=== PATIENT | female | born 1940 | race Caucasian/White ===

== ENCOUNTER → 2020-03-29 | Outpatient (CLI) | payer MEDICARE, OTHER | END | disposition home or self-care (01) | LOC: RAH 13:34 | PROVIDERS: ATTEND Family Medicine | DX: M48.061 Spinal stenosis, lumbar region without neurogenic claudication (principal); M51.26 Other intervertebral disc displacement, lumbar region | CPT/HCPCS: 72148 ==

== ENCOUNTER 2020-05-29 13:00 | Inpatient (IN) | payer MEDICARE ==
[~2020-05-29] VITALS: Ht 160 cm; Wt 76.4 kg
[2020-05-30 09:54] LABS: BASOPHILS % (AUTO) 0.7 % (0.0-5.0); EOSINOPHILS % (AUTO) 3.6 % (0.0-8.0); HEMATOCRIT 42.9 % (36-48); LYMPHOCYTES % (AUTO) 19.7 % (21.0-51.0); MEAN CORPUSCULAR HEMOGLOBIN 32.2 pg (27.0-33.0); MEAN CORPUSCULAR HGB CONC 33.3 g/dL (32.0-36.0); MEAN CORPUSCULAR VOLUME 96.6 fL (79-99); MONOCYTES % (AUTO) 9.4 % (3.0-13.0); NEUTROPHILS % (AUTO) 66.4 % (40.0-77.0); PLATELET COUNT (AUTO) 251 K/uL (130-400); RED BLOOD CELL COUNT(AUTO) 4.44 MIL/uL (4.00-5.50); RED CELL DISTRIBUTION WIDTH 12.3 % (11.0-15.5); WHITE BLOOD COUNT (AUTO) 6.1 K/uL (4.8-10.8)
[2020-05-30 10:03] LABS: POTASSIUM 5.3 mmol/L (3.5-5.1)
[2020-06-04 09:02] VITALS: BP 146/59
[2020-06-04] MEDS ORDERED: CO ENZYME Q10 PO (10:16)
[2020-06-04] MEDS ORDERED: CYAN-52 PO (10:16)
[2020-06-04] MEDS ORDERED: ASCO500C18 PO (10:16)
[2020-06-04] MEDS ORDERED: L.AC1CAP6 PO (10:16)
[2020-06-04] MEDS ORDERED: TAUR1000 PO (10:16)
[2020-06-04] MEDS ORDERED: DIPH25 PO (10:16)
[2020-06-04] MEDS ORDERED: MAGN500C15 PO (10:16)
[2020-06-04] MEDS ORDERED: ZINC220T4 PO (10:16)
[2020-06-04] MEDS ORDERED: GLUC100019 PO (10:16)
[2020-06-04] MEDS ORDERED: IVER3TAB PO (10:16)
[2020-06-04] MEDS ORDERED: ACYC-138 PO (10:16)
[2020-06-04] MEDS ORDERED: CHOL500045 PO (10:16)
[2020-06-04] MEDS ORDERED: ATEN50TA PO (10:16)
[2020-06-04] MEDS ORDERED: SPIR25TA6 PO (10:16)
[2020-06-04] MEDS ORDERED: ASPI-1443 PO (10:16)
[2020-06-05] VITALS (23 sets, daily range): BP systolic 77–151; BP diastolic 40–104
[2020-06-05] MEDS ORDERED: LACTATED RINGERS 1000ML 1,000 ML IV ONE (06:23)
[2020-06-05] MEDS ORDERED: CEFAZOLIN SODIUM 1 GM VIAL ONE ×3 (06:23→10:52)
[2020-06-05] MEDS ORDERED: THROMBIN-JMI 20000 UNIT KIT TP ONE (06:47)
[2020-06-05] MEDS ORDERED: MORPHINE PF 100MG/10ML AMP IV ONE (06:47)
[2020-06-05] MEDS ORDERED: PROPOFOL 10 MG/ML 20ML VIAL IV ONE (06:54)
[2020-06-05] MEDS ORDERED: ROCURONIUM 10MG/1ML SYR 10 MG/ML ML ONE (06:55)
[2020-06-05] MEDS ORDERED: DEXAMETHASONE SOD PHOSPHATE 10MG/ML 1ML VIAL ONE (06:56)
[2020-06-05] MEDS ORDERED: ONDANSETRON 4MG INJ ONE ×2 (06:57→13:48)
[2020-06-05] MEDS ORDERED: FENTANYL CITRATE PF 50 MCG/1 ML 2ML VIAL ONE (07:00)
[2020-06-05] MEDS ORDERED: MIDAZOLAM HCL 1 MG/ML 2ML VIAL ONE (07:00)
[2020-06-05 07:04] LABS: CREATININE 0.9 mg/dL (0.5-1.5); POTASSIUM 4.4 mmol/L (3.5-5.1)
[2020-06-05] MEDS ORDERED: BUPIVACAINE/PF 0.25% 30ML VIAL IJ PRN (07:30)
[2020-06-05] MEDS ORDERED: CEFAZOLIN SODIUM 1 GM VIAL IVP ONE (08:00)
[2020-06-05] MEDS ORDERED: SUCCINYLCHOLINE CHLORIDE 20 MG/ML 10 ML VIAL ONE (10:52)
[2020-06-05] MEDS ORDERED: EPHEDRINE SULFATE 50 MG/ML AMPULE ONE (12:05)
[2020-06-05] MEDS ORDERED: KETOROLAC 30MG VIAL (30MG/ML) ONE (12:57)
[2020-06-05] MEDS ORDERED: 0.9%NACL 10ML VIAL IVP PRN (13:15)
[2020-06-05] MEDS ORDERED: HYDROCODONE/ACETAMINOPHEN 5/325 MG TAB PO PRN (13:15)
[2020-06-05] MEDS ORDERED: MORPHINE 2 MG SYG IVP PRN (13:15)
[2020-06-05] MEDS: DEXAMETHASONE SOD PHOSPHATE 4 MG/ML 1ML VIAL IVP SCH ×2 (14:00→19:46)
[2020-06-05] MEDS: LACTATED RINGERS 1000ML 1,000 ML IV SCH (14:54)
[2020-06-05] MEDS: PROMETHAZINE HCL 25 MG/ML 1ML AMPULE IM PRN ×2 (16:45→23:25)
[2020-06-05] MEDS ORDERED: DIPHENHYDRAMINE HCL 25 MG CAPSULE ONE (19:20)
[2020-06-05] MEDS ORDERED: LACTOBACILLUS RHAMNOSUS GG 1 EACH CAP.SPRINK ONE (19:21)
[2020-06-05] MEDS ORDERED: ATENOLOL 50 MG TABLET ONE (19:30)
[2020-06-05] MEDS: DIPHENHYDRAMINE HCL 25 MG CAPSULE PO SCH (19:47)
[2020-06-05] MEDS: LACTOBACILLUS RHAMNOSUS GG 1 EACH CAP.SPRINK PO SCH (19:47)
[2020-06-05] MEDS: ATENOLOL 50 MG TABLET PO SCH (19:48)
[2020-06-05] MEDS ORDERED: CEFAZOLIN SODIUM 1 GM VIAL IVP SCH (20:00)
[2020-06-05] MEDS ORDERED: DIPHENHYDRAMINE HCL 25 MG PO SCH (21:00)
[2020-06-05] MEDS ORDERED: PARACASEI B LACTIS PO SCH (21:00)
[2020-06-05] MEDS ORDERED: ACIDOPH PO SCH (21:00)
[2020-06-05] MEDS: ACYCLOVIR 800 MG TABLET PO SCH (21:13)
[2020-06-06] VITALS (21 sets, daily range): BP systolic 99–140; BP diastolic 43–75
[2020-06-06] MEDS: LACTATED RINGERS 1000ML 1,000 ML IV SCH (02:30)
[2020-06-06] MEDS: DEXAMETHASONE SOD PHOSPHATE 4 MG/ML 1ML VIAL IVP SCH ×4 (02:30→23:52)
[2020-06-06] MEDS: ZINC 50MG PO SCH (09:00)
[2020-06-06] MEDS: CO ENZYME Q10 PO SCH (09:00)
[2020-06-06] MEDS ORDERED: NON-FORMULARY MEDICATION 1 EACH (Magnesium Oxide (Magnesium) 500 MG) PO SCH (09:00)
[2020-06-06] MEDS: CYANOCOBALAMIN (VITAMIN B-12) 1,000 MCG TABLET PO SCH (09:00)
[2020-06-06] MEDS ORDERED: CO ENZYME Q10 PO SCH (09:00)
[2020-06-06] MEDS: GLUCOSAMINE SULFATE 1500 MG PO SCH (09:00)
[2020-06-06] MEDS ORDERED: NON-FORMULARY MEDICATION 1 EACH (Cholecalciferol (Vitamin D3) (Vitamin D3) 125 MCG) PO SCH (09:00)
[2020-06-06] MEDS ORDERED: TAURINE 1000 MG PO SCH (09:00)
[2020-06-06] MEDS: ASPIRIN 81 MG EC TAB PO SCH (09:00)
[2020-06-06] MEDS ORDERED: ZINC SULFATE 50 MG PO SCH (09:00)
[2020-06-06] MEDS: SPIRONOLACTONE 25 MG TAB PO SCH (09:00)
[2020-06-06] MEDS: IVERMECTIN 3 MG TAB PO SCH (09:00)
[2020-06-06] MEDS: TAURINE 1000 MG PO SCH (09:00)
[2020-06-06] MEDS: MAGNESIUM OXIDE 400 MG TABLET PO SCH (09:00)
[2020-06-06] MEDS ORDERED: GLUCOSAMINE SULFATE 1500 MG PO SCH (09:00)
[2020-06-06] MEDS: ASCORBIC ACID 500 MG TAB PO SCH (12:00)
[2020-06-06] MEDS ORDERED: NON-FORMULARY MEDICATION 1 EACH (Ascorbic Acid (Vitamin C) 500 MG) PO SCH (12:00)
[2020-06-06 12:13] LABS: MEAN CORPUSCULAR HEMOGLOBIN 32.4 pg (27.0-33.0); MEAN CORPUSCULAR HGB CONC 34.1 g/dL (32.0-36.0); MEAN CORPUSCULAR VOLUME 95.2 fL (79-99); RED BLOOD CELL COUNT(AUTO) 3.36 MIL/uL (4.00-5.50); RED CELL DISTRIBUTION WIDTH 12.5 % (11.0-15.5); WHITE BLOOD COUNT (AUTO) 15.8 K/uL (4.8-10.8)
[2020-06-06 12:25] LABS: PROTHROMBIN TIME 10.9 SEC (9.6-11.6)
[2020-06-06] MEDS ORDERED: LIDOCAINE PF 100MG/5ML (2%) SYRINGE 5ML ONE (14:15)
[2020-06-06] MEDS ORDERED: PROPOFOL 10 MG/ML 20ML VIAL IV ONE (14:15)
[2020-06-06] MEDS ORDERED: SUCCINYLCHOLINE CHLORIDE 20 MG/ML 10 ML VIAL ONE (14:15)
[2020-06-06] MEDS ORDERED: MIDAZOLAM HCL 1 MG/ML 2ML VIAL ONE (14:16)
[2020-06-06] MEDS ORDERED: DEXAMETHASONE SOD PHOSPHATE 10MG/ML 1ML VIAL ONE (14:16)
[2020-06-06] MEDS ORDERED: NEOSTIGMINE 5MG/5ML SYR IV ONE ×2 (14:16→14:21)
[2020-06-06] MEDS ORDERED: FENTANYL CITRATE PF 50 MCG/1 ML 2ML VIAL ONE (14:16)
[2020-06-06] MEDS ORDERED: ROCURONIUM 10MG/1ML SYR 10 MG/ML ML ONE (14:20)
[2020-06-06] MEDS ORDERED: BUPIVACAINE/EPI/PF 0.25% 30ML VIAL IJ ONE ×2 (15:07→15:13)
[2020-06-06] MEDS ORDERED: THROMBIN-JMI 5000 UNIT/VIAL TP ONE (15:08)
[2020-06-06] MEDS ORDERED: MORPHINE PF 100MG/10ML AMP IV ONE (15:08)
[2020-06-06] MEDS ORDERED: CEFAZOLIN SODIUM 1 GM VIAL ONE ×2 (15:50→16:24)
[2020-06-06] MEDS ORDERED: SCOPOLAMINE HYDROBROMIDE 1 EACH ADH..PATCH TD ONE (15:55)
[2020-06-06] MEDS ORDERED: GENTAMICIN 80 MG/NS 100 ML PB 100 ML IV ONE (16:34)
[2020-06-06] MEDS ORDERED: GLYCOPYRROLATE 1 MG/5 ML SYRINGE ONE (16:57)
[2020-06-06] MEDS ORDERED: ONDANSETRON 4MG INJ ONE (16:58)
[2020-06-06] MEDS ORDERED: ZOLPIDEM TARTRATE 5 MG TAB PO SCH (18:00)
[2020-06-06] MEDS: ACYCLOVIR 800 MG TABLET PO SCH (21:00)
[2020-06-06] MEDS: DIPHENHYDRAMINE HCL 25 MG CAPSULE PO SCH (21:00)
[2020-06-06] MEDS ORDERED: ACYCLOVIR 200 MG CAPSULE ONE (23:38)
[2020-06-06] MEDS: ATENOLOL 50 MG TABLET PO SCH (23:53)
[2020-06-07] MEDS: LACTOBACILLUS RHAMNOSUS GG 1 EACH CAP.SPRINK PO SCH (00:03)
[2020-06-07 04:32] VITALS: BP 111/58
[2020-06-07] MEDS: LACTATED RINGERS 1000ML 1,000 ML IV SCH (05:15)
[2020-06-07] MEDS: DEXAMETHASONE SOD PHOSPHATE 4 MG/ML 1ML VIAL IVP SCH ×2 (05:44→08:00)
[2020-06-07 07:54] VITALS: BP 129/61
[2020-06-07] MEDS: GLUCOSAMINE SULFATE 1500 MG PO SCH (08:20)
[2020-06-07] MEDS: ZINC 50MG PO SCH (08:21)
[2020-06-07] MEDS: CO ENZYME Q10 PO SCH (08:21)
[2020-06-07] MEDS: TAURINE 1000 MG PO SCH (08:21)
[2020-06-07] MEDS: ASPIRIN 81 MG EC TAB PO SCH (10:25)
[2020-06-07] MEDS: IVERMECTIN 3 MG TAB PO SCH (10:25)
[2020-06-07] MEDS: MAGNESIUM OXIDE 400 MG TABLET PO SCH (10:25)
[2020-06-07] MEDS: CYANOCOBALAMIN (VITAMIN B-12) 1,000 MCG TABLET PO SCH (10:25)
[2020-06-07] MEDS: SPIRONOLACTONE 25 MG TAB PO SCH (10:25)
[2020-06-07 11:17] VITALS: BP 113/62
[2020-06-07] MEDS: ASCORBIC ACID 500 MG TAB PO SCH (12:00)
== END 2020-06-07 13:35 | disposition home or self-care (01) | DRG 460 ==
LOC: DAHIP 06-05 05:49 → 3AH 06-05 14:46
PROVIDERS: ADMIT Neurological Surgery; ATTEND Neurological Surgery
PROC: 01NB0ZZ Release Lumbar Nerve, Open Approach (ICD-10-PCS; 2020-06-06)
PROC: 4A11X4G Monitoring of Peripheral Nervous Electrical Activity, Intraoperative, External Approach (ICD-10-PCS; 2020-06-06)
PROC: 00CU0ZZ Extirpation of Matter from Spinal Canal, Open Approach (ICD-10-PCS; 2020-06-06)
PROC: 0SG10K1 Fusion of 2 or more Lumbar Vertebral Joints with Nonautologous Tissue Substitute, Posterior Approach, Posterior Column, Open Approach (ICD-10-PCS; principal; 2020-06-06 16:33)
DX: M48.061 Spinal stenosis, lumbar region without neurogenic claudication (principal); M54.16 Radiculopathy, lumbar region; M43.16 Spondylolisthesis, lumbar region; M41.86 Other forms of scoliosis, lumbar region; Z20.822 Contact with and (suspected) exposure to COVID-19
CPT/HCPCS: 36415; 71045; 72110; 80048; 80051; 85025; 85027; 85610; 85730; A4344; G0378; J0330; J0690; J1100; J1580; J1885; J2001; J2250; J2274; J2405; J2550; J2704; J2710; J3010; J3490; J7030; J7120; Q0163; U0003

== ENCOUNTER → 2020-07-03 | Outpatient (CLI) | payer MEDICARE ==
[~2020-07-03] MED LIST: ACYC-138 PO; ASCO500C18 PO; ASPI-1443 PO; ATEN50TA PO; CHOL500045 PO; CO ENZYME Q10 PO; CYAN-52 PO; DIPH25 PO; GLUC100019 PO; IVER3TAB PO; L.AC1CAP6 PO; MAGN500C15 PO; SPIR25TA6 PO; TAUR1000 PO; ZINC220T4 PO
== END | disposition home or self-care (01) ==
LOC: OIH 09:02
PROVIDERS: ATTEND Neurological Surgery
DX: M41.86 Other forms of scoliosis, lumbar region (principal); M25.78 Osteophyte, vertebrae; M47.816 Spondylosis without myelopathy or radiculopathy, lumbar region; M48.061 Spinal stenosis, lumbar region without neurogenic claudication
CPT/HCPCS: 72100

== ENCOUNTER → 2020-10-22 | Outpatient (CLI) | payer MEDICARE | END | disposition home or self-care (01) | LOC: RAH 09:14 | PROVIDERS: ATTEND Neurological Surgery | DX: M43.26 Fusion of spine, lumbar region (principal); M41.86 Other forms of scoliosis, lumbar region; M48.07 Spinal stenosis, lumbosacral region | CPT/HCPCS: 72100 ==

== ENCOUNTER → 2022-06-23 | Outpatient (CLI) | payer MEDICARE ==
[~2022-06-23] MED LIST changes: +DIPH-1242 PO; -DIPH25 PO; -MAGN500C15 PO; +MAGN500C4 PO
== END | disposition home or self-care (01) ==
LOC: RAH 10:01
PROVIDERS: ATTEND Neurological Surgery
DX: M47.816 Spondylosis without myelopathy or radiculopathy, lumbar region (principal); M48.061 Spinal stenosis, lumbar region without neurogenic claudication; M43.26 Fusion of spine, lumbar region; M41.86 Other forms of scoliosis, lumbar region; Z98.890 Other specified postprocedural states
CPT/HCPCS: 72100